=== PATIENT | female | born 2000 | race African-American/Black ===

== ENCOUNTER 2019-05-12 12:29 | Emergency (ER) | payer OTHER, MEDICAID ==
[~2019-05-12] VITALS: Ht 167.6 cm; Wt 81.6 kg
[2019-05-12 12:49] VITALS: BP 126/77
== END 2019-05-12 13:15 | disposition left against medical advice (07) ==
LOC: ER 12:35
DX: O20.8 Other hemorrhage in early pregnancy (principal); Z3A.12 12 weeks gestation of pregnancy; Z53.21 Procedure and treatment not carried out due to patient leaving prior to being seen by health care provider

== ENCOUNTER 2022-08-22 18:25 | Emergency (ER) | payer OTHER, MEDICAID ==
[~2022-08-22] VITALS: Ht 170.2 cm; Wt 86.7 kg
[2022-08-22 19:09] VITALS: BP 117/73
== END 2022-08-22 19:07 | disposition left against medical advice (07) ==
LOC: ER 18:30
DX: H40.003 Preglaucoma, unspecified, bilateral (principal); H54.3 Unqualified visual loss, both eyes